=== PATIENT | female | born 1990 | race Caucasian/White ===

== ENCOUNTER 2016-08-07 18:47 | Emergency (ER) | payer BC ==
[2016-08-07 18:59] VITALS: BP 132/96; PULSE 80; RESP 16; TEMP 99; O2SAT 97
[2016-08-07 19:11] LABS: COLOR YELLOW; LEUKOCYTE ESTERASE,URINE NEGATIVE (NEGATIVE); NITRITE,URINE NEGATIVE (NEGATIVE); PH,URINE 5.5 (5.0-7.5)
[2016-08-07 19:20] LABS: BACTERIA 1+ /hpf (NONE SEEN); MUCUS 2+ /lpf (NONE-1+); RBC,URINE OCCASIONAL /hpf (0-3); WBC,URINE OCCASIONAL /hpf (0-3)
[2016-08-07] MEDS ORDERED: ONDANSETRON DISINTEGRATING 4 MG TAB PO ONE (19:45)
[2016-08-07] MEDS ORDERED: AZITHROMYCIN 250 MG TAB PO ONE ×2 (19:45→20:29)
--- NOTE | 2016-08-07 19:47 | UCPHY ---
H & P Time Seen by Provider: 08/07/16 19:23 Patient Type: New HPI/ROS: CHIEF COMPLAINT: Concerns for STD HISTORY OF PRESENT ILLNESS: 26-year-old female presents reporting yesterday her partner was diagnosed with chlamydia. She was seen today at a outside facility which performed lab testing to be tested for Chlamydia. She presents to Urgent Care reporting that that test will not be available until next Tuesday and she is concerned. She feels like she may have pelvic inflammatory disease. She reports a fever month ago. She reports an episode of dysuria 1 month ago which cleared with fluids. She denies vaginal discharge currently. She denies a fever currently. She and her partner have been having unprotected sex for the last month. Currently she has no dysuria. No fever, chills, chest pain, shortness of breath, palpitations, vomiting, diarrhea, urinary complaints, headache, lightheadedness. REVIEW OF SYSTEMS: Aside from elements discussed in the HPI, a comprehensive 10-point review of systems was reviewed and is negative. PAST MEDICAL HISTORY: Denies. Patient reports that she is allergic to an unknown antibiotic which was used to treat an ear infection when she was a child. SOCIAL HISTORY: Occasional smoker. VITAL SIGNS: see nurse's notes. GENERAL: Well-developed, well-nourished, in no acute distress. HEENT: Normal, no discharge or icterus, moist mucous membranes. Neck: supple, FROM. LUNGS: Clear to auscultation bilaterally, no wheezes, rhonchi or rales. CARDIAC: Regular rate and rhythm, no rubs, murmurs or gallops. ABDOMEN: Soft, nontender, nondistended, bowel sounds normal. BACK: No CVA tenderness. No vertebral tenderness. EXTREMITIES: No edema, FROM. NEURO: Alert and oriented, grossly nonfocal. SKIN: Warm and dry, no rash. Smoking Status: Current some day smoker Constitutional: Initial Vital Signs Temperature (C) 37.2 C 08/07/16 18:50 Heart Rate 80 08/07/16 18:50 Respiratory Rate 16 08/07/16 18:50 Blood Pressure 132/96 H 08/07/16 18:50 O2 Sat (%) 97 08/07/16 18:50 O2 Delivery Mode Room Air Allergies/Adverse Reactions: Sulfa (Sulfonamide Antibiotics) Allergy (Unknown, Verified 08/07/16 20:29) Unknown Home Medications: Medication Instructions Recorded Cefadroxil 08/07/16 MDM/Departure - MDM Medications Given: Discontinued Medications Azithromycin (Zithromax) 1,000 mg PO EDNOW ONE PRN Reason: Protocol Stop: 08/07/16 20:30 Last Admin: 08/07/16 20:44 Dose: 1,000 mg Ceftriaxone Sodium (Rocephin 250mg Vial) 250 mg IM EDNOW ONE PRN Reason: Protocol Stop: 08/07/16 20:29 Last Admin: 08/07/16 20:45 Dose: 250 mg Ondansetron HCl (Zofran Odt) 4 mg PO EDNOW ONE Stop: 08/07/16 19:46 Last Admin: 08/07/16 20:45 Dose: 4 mg ED Course/Re-evaluation: Patient was treated for GC and Chlamydia. She did discuss the antibiotic allergy with her mother and advises that she was allergic to sulfa. Patient receives ceftriaxone 250 mg IM x1 and azithromycin 1 g p.o. x1. 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 She was given referral to Dr. Oneill. We discussed importance of prevention as well as safe sex. Differential Diagnosis: Differential diagnoses for the patient's symptom complex was considered including but not limited to Chlamydia, gonorrhea, bacterial vaginosis, hepatitis-C, herpes, syphilis, HIV. - Depart Disposition: Home, Routine, Self-Care Clinical Impression: Exposure to STD Condition: Good Instructions: Chlamydia (ED), Safe Sex (ED), Gonorrhea (ED) Additional Instructions: You been treated with azithromycin 2 g to treat both gonorrhea and chlamydia. Please [facility] up [facility] I strongly recommend you consider control and safe sex to prevent further exposure to STDs. Referrals: NONE *PRIMARY CARE P,. [Primary Care Provider] - As per Instructions Joya Oneill MD [Medical Doctor] - As per Instructions - PQRS PQRS Measurement: Not applicable
[2016-08-07] MEDS ORDERED: cefTRIAXone 250 MG VIAL IM ONE (20:28)
[2016-08-09 14:17] LABS: CHLAMYDIA AMPLIFICATION GENPRB POSITIVE (NEGATIVE)
== END 2016-08-07 21:10 | disposition home or self-care (01) ==
LOC: CED 18:47
DX: Z20.2 Contact with and (suspected) exposure to infections with a predominantly sexual mode of transmission (principal); Z72.0 Tobacco use
CPT/HCPCS: 81003-PO; 81015-PO; 96372-PO; 99203-PO; G0463-PO; J0696

== ENCOUNTER 2017-01-01 15:23 | Emergency (ER) | payer BC ==
--- NOTE | 2017-01-01 16:03 | EDPHY ---
H & P Stated Complaint: Shakiness HPI/ROS: CHIEF COMPLAINT: Syncopal episode. HISTORY OF PRESENT ILLNESS: The patient is a 26-year-old female who presents after a syncopal episode just prior to arrival. She reports that she was at a bar with friends when she began to feel lightheaded and diaphoretic and then passed out for 2 minutes. She was incontinent of urine at that time. Her friends did not notice any shaking or unusual body movements. She does have a history of a prior syncopal episode. She is currently on her period. She denies dizziness, lightheadedness, vomiting, diarrhea, or other complaints. REVIEW OF SYSTEMS: A ten point review of systems was performed and is negative with the exception of the items mentioned in the HPI. 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 2. Smoker. 3. Social alcohol use. - Physical Exam Exam: General Appearance: Alert. Vital signs reviewed. Eyes: Pupils equal and round, no conjunctival injection, no discharge. Anicteric. ENT, Mouth: Mucous membranes are moist, no oropharyngeal erythema or edema. No tongue injury. Neck: No lymphadenopathy, supple. Respiratory: Lungs are clear to auscultation; no wheezes, rales, or rhonchi. Cardiovascular: Regular rate and rhythm; no murmur, rub, or gallop. Gastrointestinal: Abdomen is soft and nontender, no masses or organomegaly, bowel sounds normal. Skin: Warm and dry, no rashes on exposed skin. Sunburned. Back: Nontender to palpation over the thoracolumbar spine. No CVAT. Extremities: No lower extremity edema, no calf tenderness or swelling. Neurological: Alert and oriented. Moving all four extremities easily and equally. Cranial nerves II through XII are examined and are intact (visual acuity not tested). Strength is 5 over 5 bilaterally with testing of all major motor groups. Sensation is intact to light touch over all 4 extremities. Psychiatric: Normal affect. Constitutional: Initial Vital Signs Temperature (C) 37.0 C 01/01/17 15:33 Heart Rate 85 01/01/17 15:33 Respiratory Rate 18 01/01/17 15:33 Blood Pressure 119/76 01/01/17 15:33 O2 Sat (%) 99 01/01/17 15:33 O2 Delivery Mode Room Air Allergies/Adverse Reactions: Sulfa (Sulfonamide Antibiotics) Allergy (Unknown, Verified 08/07/16 20:29) Unknown Home Medications: Medication Instructions Recorded NK [No Known Home Meds] 01/01/17 Medical Decision Making - Diagnostics EKG Interpretation: 12-LEAD EKG: Please see the full report in [facility]. My interpretation: Normal sinus rhythm ED Course/Re-evaluation: I feel that this patient's presentation is consistent with a syncopal episode, which she has had before. I feel that seizure is unlikely. We will check blood work for electrolyte or other abnormalities. I have ordered an EKG to assess for possible arrhythmias. An IV was established and labs ordered including beta HCG. She has not been drinking alcohol in excess, denies using drugs. She is not --ectopic not the reason for her syncope. Nothing to suggest volume depletion, blood loss. This is likely vasovagal. I reviewed the patient's laboratory studies, which are negative for acute abnormalities. EKG WNL. Normal intervals, normal sinus. 1715: Reassessed patient. Discussed results of workup. I feel she is safe to go home at this time. She is comfortable with the plan. Differential Diagnosis: Syncope including but not limited to vasovagal syncope, arrhythmia, dehydration , and blood loss.. - Data Points Laboratory Results: Laboratory Results 01/01/17 16:08 01/01/17 16:08 Departure - Departure Disposition: Home, Routine, Self-Care Clinical Impression: Syncope Qualifiers: Syncope type: vasovagal syncope Qualified Code(s): R55 - Syncope and collapse Condition: Good Instructions: Syncope (ED) Additional Instructions: Stay well hydrated and be sure to get plenty of rest. Follow up with your primary care provider for reevaluation. You have been provided the telephone number of the on-call outpatient doctor. Return for any serious worsening of condition. Referrals: Reyes Smith MD [Medical Doctor] - As per Instructions Report Scribed for: Rani Lira Report Scribed by: Anil Guillory Date of Report: 01/01/17 Time of Report: 16:11 Physician Review and Approval Statement: 01/01/17 16:03 Portions of this note were transcribed by the medical anthropology director. I, Dr. Rani Lira, personally performed the history, physical exam, and medical decision- making; and confirmed the accuracy of the information in the transcribed note.
--- NOTE | 2017-01-01 16:15 | CPEKG ---
Heart Rate: 75 RR Interval: 800 P-R Interval: 148 QRSD Interval: 98 QT Interval: 392 QTC Interval: 438 P Brawley: 56 QRS Brawley: 90 T Wave Brawley: 34 EKG Severity - OTHERWISE NORMAL ECG - EKG Impression: SINUS RHYTHM EKG Impression: BORDERLINE RIGHT AXIS DEVIATION Electronically Signed By: Rani Lira 02-Jan-2017 00:04:02
[2017-01-01 16:18] VITALS: PULSE 78
[2017-01-01 16:19] LABS: % IMMATURE GRANULYOCYTES 0.4 % (0.0-1.1); ABSOLUTE IMMATURE GRANULOCYTES 0.03 10^3/uL (0.00-0.10); ADD DIFF? NO; ADD MORPH? NO; ADD SCAN? NO; ATYPICAL LYMPHOCYTE FLAG 20 (0-99); FRAGMENT RBC FLAG 0 (0-99); HEMATOCRIT 40.9 % (38.0-47.0); HEMOGLOBIN 13.6 g/dL (12.6-16.3); LEFT SHIFT FLG 10 (0-99); LIPEMIA HEMOLYSIS FLAG 80 (0-99); MEAN CELL HEMOGLOBIN 31.9 pg (27.9-34.1); MEAN CELL HEMOGLOBIN CONCENTR. 33.3 g/dL (32.4-36.7); MEAN PLATELET VOLUME 10.8 fL (8.7-11.7); PLATELET CLUMPS FLAG 0 (0-99); PLATELET COUNT 204 10^3/uL (150-400); RED BLOOD CELL COUNT 4.26 10^6/uL (4.18-5.33); RED CELL DISTRIBUTION WIDTH 12.4 % (11.5-15.2)
[2017-01-01 16:24] LABS: ANION GAP 16 mEq/L (8-16); CALCIUM 9.8 mg/dL (8.5-10.4); CARBON DIOXIDE 20 mEq/l (22-31); CHLORIDE 106 mEq/L (97-110); CREATININE 0.9 mg/dL (0.6-1.0); GLOMERULAR FILTRATION RATE > 60; GLUCOSE 78 mg/dL (70-100); POTASSIUM 3.6 mEq/L (3.5-5.2); SODIUM 142 mEq/L (134-144)
[2017-01-01 17:37] VITALS: BP 101/63; RESP 15; TEMP 97.9; O2SAT 96
== END 2017-01-01 17:38 | disposition home or self-care (01) ==
DX: R55 Syncope and collapse (principal); F17.200 Nicotine dependence, unspecified, uncomplicated